=== PATIENT | male | born 1960 | race Caucasian/White ===

== ENCOUNTER → 2016-08-31 | Outpatient (CLI) | payer BC ==
--- NOTE | 2016-08-31 22:25 | CONS ---
DATE OF CONSULTATION: DATE: 08/31/2016 CONSULTATION/NEW PATIENT EVALUATION HISTORY OF PRESENT ILLNESS/SLEEP-WAKE EVALUATION: 56-year-old gentleman who has been evaluated in the sleep center for possible obstructive sleep apnea/hypopnea syndrome. SLEEP SCHEDULE: Patient's usual sleep schedule on working days is from 10:00 p.m. to 6:30 a.m. on weekends from around 11:00 p.m. to 7:00 a.m. FALLING ASLEEP: No problem with falling asleep. He has a TV in bedroom. DURING SLEEP: Usually sleeps on the side position. According to his , he snores and has episodes of stopped breathing during this sleep. He wakes up from sleep up to 3 times with nocturia. Patient also has with symptoms of restless leg while he is going to sleep. DURING THE DAY/WAKE STATE: He usually does not take any naps during the day. [place] Sleepiness Scale is 7. Past medical history is positive for BPH, headaches, neck pain, kidney stones, pneumothorax. Patient had pneumothorax at 1975, past surgical surgery for kidney stone on the left side and insertion of tube for pneumothorax. Also some hearing problem right side. MEDICATIONS: 1. Cialis. 2. Gabapentin. 3. ( ). SOCIAL HISTORY: Negative for smoking. Alcohol consumption occasional. FAMILY HISTORY: Unavailable patient was adopted. REVIEW OF SYSTEMS: No fevers. No double vision. No recent chest pain. No shortness of breath. No abdominal pain. No bleeding episodes. No blood in urine. No seizure episodes. PHYSICAL EXAMINATION: gentleman without distress. VITAL SIGNS: BP 152/87, HR 108, RR 16. Height 5 feet 6-1/2 inches. Weight 194. BMI 30.8. Neck 15-1/2 inches in circumference. Temperature 98.3. Oxygen saturation at room air 96%. HEENT: PERRLA, EOMI evaluation of oropharynx showed tongue protrudes midline; moderately low position of soft palate extremely short distance between soft palate and posterior pharyngeal wall. Retrognathia about 8 mm. Restriction of nasal breathing on the right side. NECK: Supple. No JVD. Thyroid is not palpable. LUNGS: Clear to percussion and to auscultation. Good air exchange. No wheezing or rhonchi. HEART: S1, S2 regular. No murmurs, gallops or rubs. ABDOMEN: Slightly obese. Soft and nontender. Bowel sounds are present. No organomegaly appreciated. EXTREMITIES: No clubbing or cyanosis. GYPSUM ROOFER: Awake, alert, and oriented x3. Cranial nerves 2 to 7 intact. There is no fasciculation or atrophy noted. No focal deficits observed. IMPRESSION: 1. Snoring, witnessed episodes of stopped breathing during sleep, retrognathia, restriction of nasal breathing, obstructive sleep apnea-hypopnea syndrome. 2. Mild obesity; body mass index of 30.8. 3. History of benign prostatic hypertrophy. 4. History of restless leg symptoms. 5. Headaches. 6. Neck pain. 7. Status post surgical treatment of left kidney for the kidney stones. 8. History of right side pneumothorax in 1974, and at that time, tube was inserted. PLAN: 1. Polysomnography for evaluation of patient's breathing during sleep. 2. CPAP/BiPAP titration if sleep study confirms obstructive sleep apnea-hypopnea syndrome there is tenderness about CPAP. I would not recommend to use auto Pap because of history of pneumothorax 3. Preferable position during sleep on the side. 4. No driving if patient feels any sleepiness. Patient is aware of civil and criminal liability for unsafe driving. 5. I will see patient for follow-up visit to explain results of the testing and following plan. Sincerely, Jose Guadalupe Joel MD, PhD, FAASM. Diplomat of [place] [employer], Sleep Medicine Board by [place] [employer] [place] [employer] Body Sander of [facility] [place]
== END | disposition home or self-care (01) ==
LOC: SLEEP 13:42
PROVIDERS: ATTEND Internal Medicine
DX: G47.33 Obstructive sleep apnea (adult) (pediatric) (principal); Z79.899 Other long term (current) drug therapy; E66.9 Obesity, unspecified; Z68.30 Body mass index [BMI] 30.0-30.9, adult

== ENCOUNTER → 2016-11-16 | Outpatient (CLI) | payer BC ==
--- NOTE | 2016-11-17 09:39 | PN ---
DATE OF SERVICE: 11/16/16 56 -year-old gentleman has been followed in the sleep center for discussion results of sleep studies. I discussed results of sleep studies with the patient and family in detail. Diagnostic sleep study which was done as a home sleep apnea test showed extremely severe obstructive sleep apnea/hypopnea syndrome with apnea/hypopnea index 51.5. Oxygen desaturation to 75%. Subsequently CPAP titration was done and the patients respiration was under control with pressure 6 cm water. At that pressure, apnea/hypopnea index reduced to 2.6. Today, [place] sleep scale is 6. PHYSICAL EXAM: GENERAL: A pleasant patient without any distress. VITAL SIGNS: BP 138/81, HR 90, RR 16, height 5 feet 6 inches, weight 194, body mass index 31.3. Temp 98.1, oxygen saturation on room air 94%. HEENT: PERRLA, EOMI. Evaluation of oropharynx shows moderately low position of soft palate. Tongue protrudes midline. Retrognathia about 6 mm. NECK: Supple. No JVD. Thyroid is not palpable. LUNGS: Clear to auscultation and percussion. Good air exchange. No wheezing or rhonchi. HEART: S1, S2 regular. No murmurs, gallops or rubs. ABDOMEN: Soft, nontender. Bowel sounds are present. No organomegaly appreciated. EXTREMITIES: No clubbing or cyanosis. MEDICAL OFFICE COORDINATOR: Awake, alert and oriented times three. Cranial nerves 2 to 7 intact. There is no fasciculation or atrophy noted. No focal deficits observed. IMPRESSION: 1. Severe obstructive sleep apnea/hypopnea syndrome. 2. History of BPH. 3. History of ( ). 4. History of headaches. 5. History of neck pain. 6. Status post surgical treatment of left kidney for kidney stone. 7. Status post right sided pneumothorax in 1974. PLAN: 1. The patient will be started on CPAP with pressure 6 cm water. 2. Sleep hygiene with regular time in bed for at least 7 hours. 3. The patient should use equipment every night for the whole night. 4. No driving if patient feels any sleepiness. 5. Follow-up visit after 30 nights of using CPAP equipment, evaluating response to treatment, compliance, and making necessary adjustments related to mask fitting, pressure and humidification. Thank you very much for allowing me to participate in the management of your patient. Sincerely, Jose Guadalupe Joel MD, PhD, FAASM Diplomat of [place] [employer]. Sleep Medicine Board by [place] [employer] [place] [employer] Medicine Head Of Data of [facility]
== END | disposition home or self-care (01) ==
LOC: SLEEP 16:33
PROVIDERS: ATTEND Internal Medicine
DX: G47.33 Obstructive sleep apnea (adult) (pediatric) (principal); Z98.890 Other specified postprocedural states

== ENCOUNTER → 2018-03-07 | Outpatient (CLI) | payer BC ==
--- NOTE | 2018-03-07 18:08 | PN ---
PROGRESS NOTE DATE OF SERVICE: 03/07/2018 57-year-old gentleman has been followed in Sleep Center for treatment of severe obstructive sleep apnea-hypopnea syndrome. The patient continued to use his CPAP equipment every night without significant problems related to mask fitting, pressure and humidification. I checked his CPAP unit. CPAP pressure is 6 cm of water. Usage for the last month 24/30 nights. Average usage 4.8 hours. Leak 14 L/minute, which is acceptable. Apnea- hypopnea index 4.7, which is in normal range. [place] Sleepiness Scale is 5. MEDICATIONS: Cialis, gabapentin, multivitamins. PHYSICAL EXAM: Patient in no distress BP 128/73, HR 78, RR 16, height 5 feet 6-1/2 inches, weight 192, body mass index 30.5, temperature 97.4, oxygen saturation at room air 98%. Oropharynx, moderately low position of soft palate. Retrognathia 5-6 mm. Neck Supple, no JVD. Thyroid is not palpable. LUNGS Clear to percussion and to auscultation. Good air exchange. No wheezing or rhonchi. HEART S1, S2 regular. No murmurs, gallops, or rubs. ABDOMEN Soft and nontender. Bowel sounds are present. No organomegaly appreciated. EXTREMITIES No clubbing or cyanosis. LUMBER SALVAGER Awake, alert, and oriented X3. Cranial nerves 2 to 7 intact. There is no fasciculation or atrophy. noted. No focal deficits observed. IMPRESSION: 1. Severe obstructive sleep apnea-hypopnea syndrome apnea-hypopnea index 61 on control with CPAP at 6 cm of water. Patient demonstrated good compliance with treatment benefitting from treatment. 2. History of benign prostatic hypertrophy. 3. History of neck pain. 4. History of headaches. 5. Status post surgical treatment of left kidney for kidney stone. 6. Status post right-sided pneumothorax. PLAN: 1. Patient will continue to use CPAP equipment every night for the whole night. 2. Sleep hygiene with regular time in bed for at least 8 hours. 3. No driving if feeling sleepiness. 4. Prescription for all necessary CPAP supplies including mask, tube, filters. 5. Followup visit in 1 year or earlier if patient has any problems. Thank you very much for allowing me to participate in management of your patient. Sincerely, Jose Guadalupe Joel MD, PhD, FAASM Diplomat of [place] [employer] [employer] of [employer] Medicine Technical Stenographer of [facility] [place] MMBHAVANA / RUSSELL: [id number] /
== END ==
LOC: SLEEP 15:37
PROVIDERS: ATTEND Internal Medicine
DX: G47.33 Obstructive sleep apnea (adult) (pediatric) (principal); N40.0 Benign prostatic hyperplasia without lower urinary tract symptoms; J95.811 Postprocedural pneumothorax; Z99.89 Dependence on other enabling machines and devices; Z98.890 Other specified postprocedural states; Z79.899 Other long term (current) drug therapy

== ENCOUNTER → 2019-03-20 | Outpatient (CLI) | payer BC ==
--- NOTE | 2019-03-20 16:58 | PN ---
PROGRESS NOTE DATE OF SERVICE: 03/20/2019 This patient is a 58-year-old gentleman who has been followed in the sleep center for treatment of obstructive sleep apnea-hypopnea syndrome. The patient continues to use his CPAP equipment most of the nights without significant problems related to mask fitting, pressure or humidification. [place] Sleepiness Scale today is 5. I checked his CPAP unit. CPAP pressure is 6 cm of water. Usage is 26/30 nights for the last month, and 20/30 nights for more than 4 hours. Average usage is 4.5 hours per night. Leak is 16 L/minute, which is borderline. Apnea-hypopnea index is 4.3, which is acceptable. MEDICATIONS: 1. Cialis. 2. Gabapentin. 3. Flomax. 4. Tamsulosin. PHYSICAL EXAMINATION: GENERAL: A pleasant patient in no distress. VITAL SIGNS: BP 149/94, HR about 95, RR 16, height 5 feet 8 inches, weight 192.6, which is 2 pounds less than one year ago, body mass index 29.1, temperature 97.7, oxygen saturation at room air 98%. HEENT: PERRLA, EOMI. Evaluation of oropharynx showed tongue protrudes midline. Retrognathia 5 mm. Low position of soft palate. Mallampati III. NECK: Supple. No JVD. Thyroid is not palpable. LUNGS: Clear to percussion and to auscultation. Good air exchange. No wheezing or rhonchi. HEART: S1, S2 regular. No murmurs, gallops or rubs. ABDOMEN: Soft and nontender. Bowel sounds are present. No organomegaly. EXTREMITIES: No clubbing or cyanosis. STRATEGIC PROCUREMENT MANAGER: Awake, alert, and oriented X3. Cranial nerves 2 to 7 intact. There is no fasciculation or atrophy. noted. No focal deficits observed. IMPRESSION: 1. Severe obstructive sleep apnea-hypopnea syndrome; apnea-hypopnea index 61, under good control with CPAP at a pressure of 6 cm of water. Patient demonstrated good compliance with treatment, benefitting from treatment. 2. History of benign prostatic hypertrophy. 3. Headaches. 4. History of neck pain. 5. History of left kidney stone surgical treatment. 6. Status post right-sided pneumothorax in 1974. PLAN: 1. Patient will continue to use CPAP equipment every night for the whole night. 2. Watching weight. 3. Sleep hygiene with regular time in bed for 7-1/2 to 8 hours. 4. No driving if feeling any sleepiness. 5. I will maintain all necessary prescriptions for CPAP supplies, including mask, tube, filters. If necessary, replacement of water chamber. 6. Follow-up visit in one year, or earlier if patient has any problems. Thank you very much for allowing me to participate in the management of your patient. Sincerely, Jose Guadalupe Joel MD, PhD, FAASM Diplomat of [place] [employer] Specialties [place] Board of Internal Medicine Production Counter of [facility] [place] MMODL / IJN: [id number] /
== END | disposition home or self-care (01) ==
LOC: SLEEP 16:04
PROVIDERS: ATTEND Internal Medicine
DX: G47.33 Obstructive sleep apnea (adult) (pediatric) (principal); J95.811 Postprocedural pneumothorax; R51 Headache; Z87.438 Personal history of other diseases of male genital organs; Z87.39 Personal history of other diseases of the musculoskeletal system and connective tissue; Z98.890 Other specified postprocedural states; Z99.89 Dependence on other enabling machines and devices; Z79.899 Other long term (current) drug therapy

== ENCOUNTER → 2020-01-01 | Outpatient (CLI) | payer OTHER | END | disposition home or self-care (01) | LOC: LABPAT 07:18 | PROVIDERS: ATTEND Surgery | DX: U07.1 COVID-19 (principal) | CPT/HCPCS: U0003; C9803 ==

== ENCOUNTER 2020-01-09 07:08 | Day surgery (SDC) | payer OTHER ==
[2020-01-06 15:58] VITALS: BMI 25.8
[~2020-01-09 07:08] MED LIST: LACTATED RINGERS 1,000 ML IV SCH
[2020-01-09 07:44] VITALS: TEMP 97.3
[2020-01-09] MEDS ORDERED: LIDOCAINE 1% (10MG/ML) FOR IV START INTRADERMA ONE (07:46)
[2020-01-09] MEDS ORDERED: PROPOFOL 10 MG/ML 20 ML VIAL IV ONE (08:07)
--- NOTE | 2020-01-09 08:41 | P.PCN ---
Date of Procedure: 01/09/20 Preoperative Diagnosis: Screening Postoperative Diagnosis: Ascending colon polyp transverse colon polyp Internal hemorrhoids Procedure(s) Performed: Colonoscopy with hot snare polypectomy Surgeon: Zoran Galeas Pathology: other (Ascending colon polyp, transverse colon polyp) Condition: stable Disposition: same day Indications for Procedure: 59-year-old male presents today for a screening colonoscopy. Risks, benefits and alternatives were provided to the patient. The patient has provided consent prior to attending the endoscopy suite. Operative Findings: Ascending colon polyp Transverse colon polyp Internal hemorrhoids Description of Procedure: The patient was brought into the endoscopy suite and placed in left lateral decubitus position. Adequate sedation was achieved using conscious sedation. A digital rectal exam was performed and mild internal hemorrhoids were palpated. An endoscope was then placed in the rectum and advanced to the cecum was evident 5 by landmarks including the appendiceal orifice and the ileocecal valve. The prep was good. The colonoscope was then slowly withdrawn, examining for any mucosal and the malleus. The cecum, ascending, transverse, descending and sigmoid colon were visualized adequately. There were no large neoplastic lesions noted throughout the colon. There was an ascending colon polyp. This was removed with hot snare polypectomy. An additional polyp was noted in the transverse colon and this was removed with hot snare polypectomy. There was no evidence of diverticulosis. Retroflex was performed in the rectum and mild internal hemorrhoids were visible. Excess air was removed, the colonoscope withdrawn and the procedure terminated. The patient was then transferred to the recovery unit in stable condition. Repeat colonoscopy should be performed in 5 years.
[2020-01-09 08:57] VITALS: BP 146/69; PULSE 63; RESP 20
== END 2020-01-09 09:58 | disposition home or self-care (01) ==
LOC: ORWHC2ENDO 07:08
PROVIDERS: ATTEND Surgery
DX: Z12.11 Encounter for screening for malignant neoplasm of colon (principal); D12.3 Benign neoplasm of transverse colon; K63.5 Polyp of colon; K64.8 Other hemorrhoids; G47.33 Obstructive sleep apnea (adult) (pediatric); Z87.442 Personal history of urinary calculi; Z79.899 Other long term (current) drug therapy
CPT/HCPCS: 45385; 88305; J2704; 45380

== ENCOUNTER → 2020-01-09 | Outpatient (CLI) | payer OTHER ==
--- NOTE | 2020-01-09 14:37 | XR ---
KUB HISTORY: Kidney stone Frontal KUB submitted. There is a calcification superimposed over the left kidney measuring 2.7 cm in greatest cephalad to c audal dimension. Multiple calcifications within the pelvis may represent vascular calcification. Ther e is no evident bowel obstruction or pneumoperitoneum. Slight spinal curvature is noted. IMPRESSION: Left nephrolithiasis.
== END | disposition home or self-care (01) ==
LOC: RADXRMAIN 13:09
PROVIDERS: ATTEND Urology
DX: N20.0 Calculus of kidney (principal)
CPT/HCPCS: 74018

== ENCOUNTER → 2020-03-18 | Outpatient (CLI) | payer BC ==
--- NOTE | 2020-03-18 17:57 | SFUN ---
SLEEP CENTER FOLLOW UP NOTE DATE OF SERVICE: 03/18/2020 This patient is a 59-year-old gentleman who has been followed in Sleep Center for treatment of obstructive sleep apnea-hypopnea syndrome. The patient continues to use his CPAP equipment every night for the whole night. He does not complain about the mask fitting, pressure or humidification. [place] Sleepiness Scale today is 6. I checked his CPAP unit. CPAP pressure is 6 cm of water. Usage is 27/30 nights, and 21/30 nights for more than 4 hours, with average usage 4.3 hours per night. Leak is 16 L/minute. Apnea-hypopnea index is 11 with central apnea-hypopnea index 5.0. MEDICATIONS: 1. Finasteride 5 mg once a day. 2. Montelukast 10 mg once a day. 3. Flomax 0.4 mg once a day. 4. Claritin once a day. 5. Saw palmetto 450 mg twice a day. 6. Cialis 5 mg once a day. PHYSICAL EXAMINATION: GENERAL: A pleasant patient in no distress. VITAL SIGNS: BP 151/81 on the left arm and 130/91 on the right arm, HR 85, RR 15, height 5 feet 7 inches, weight 190, BMI 29.7, temperature 97.7, oxygen saturation at room air 97%. HEENT: PERRLA, EOMI. Evaluation of oropharynx showed tongue protrudes midline. Low position of soft palate. Mallampati III. NECK: Supple. No JVD. Thyroid is not palpable. LUNGS: Clear to percussion and to auscultation. Good air exchange. No wheezing or rhonchi. HEART: S1, S2 regular. No murmurs, gallops or rubs. ABDOMEN: Soft and nontender. Bowel sounds are present. No organomegaly appreciated. EXTREMITIES: No clubbing or cyanosis. PULP HOUSE SUPERVISOR: Awake, alert, and oriented X3. Cranial nerves 2 to 7 intact. There is no fasciculation or atrophy. noted. No focal deficits observed. IMPRESSION: 1. Severe obstructive sleep apnea-hypopnea syndrome. Original apnea-hypopnea index 61. The patient demonstrated good compliance with treatment, but apnea-hypopnea index increased to 11, and that includes central apnea-hypopnea index 5.0. 2. History of benign prostatic hypertrophy. 3. Headaches. 4. History of neck pain. 5. History of left kidney stones, treated surgically. 6. Status post right-sided pneumothorax in 1974. PLAN: 1. I changed regimen in CPAP to AutoPAP. Range of the pressure is 4 to 8. 2. Patient will continue to use PAP equipment every night for the whole night. 3. Sleep hygiene with regular time in bed for at least 7-1/2 to 8 hours. 4. Precautions related to driving. No driving if feeling sleepiness. 5. I will maintain all necessary prescription for PAP supplies, including mask, tube, filters. 6. Watching weight. 7. Follow-up visit in 3 months or earlier if patient has any problems. Thank you very much for allowing me to participate in the management of your patient. Sincerely, Jose Guadalupe Joel MD, PhD, FAASM Diplomat of [place] [employer] Medical Specialties [place] Board of Internal Medicine Manager Merchandise of [facility] [place] MMODL / JOLIEN: [id number] /
== END | disposition home or self-care (01) ==
LOC: SLEEP 15:36
PROVIDERS: ATTEND Internal Medicine
DX: G47.33 Obstructive sleep apnea (adult) (pediatric) (principal); R51.9 Headache, unspecified; Z99.89 Dependence on other enabling machines and devices; Z79.899 Other long term (current) drug therapy; Z87.442 Personal history of urinary calculi; Z87.09 Personal history of other diseases of the respiratory system; Z87.438 Personal history of other diseases of male genital organs

== ENCOUNTER → 2020-06-17 | Outpatient (CLI) | payer OTHER ==
--- NOTE | 2020-06-17 17:25 | SFUN ---
SLEEP CENTER FOLLOW UP NOTE DATE OF SERVICE: 06/17/2020 This 59-year-old gentleman has been followed in Sleep Center for treatment of obstructive sleep apnea-hypopnea syndrome. During his previous visit in March of 2020, when I checked his CPAP unit, apnea-hypopnea index was increased to 11 with central apnea-hypopnea index 5.0. That was at the pressure of 6 cm of water. I changed the regimen of the machine to automatic with range of the pressure 4 to 8 cm of water. The patient continues to use his CPAP equipment every night for the whole night. He did not feel a significant difference recently with his sleep compared to the previous visit. [place] Sleepiness Scale today is 6. I checked his CPAP unit. Range of the pressure is 4 to 8, average pressure 7.4. Usage is 27/30 nights and 25/30 nights for more than 4 hours, with average usage 5.2 hours per night. Leak is 19 L/minute. Apnea-hypopnea index increased to 15.4, and that index includes apnea index 14.4 and central abnormalities of respiration 5.9. MEDICATIONS: 1. Finasteride 5 mg once a day. 2. Flomax 0.4 mg once a day. 3. Cialis 5 mg once a day. 4. Montelukast 10 mg once a day. 5. Claritin. 6. Saw palmetto. PHYSICAL EXAMINATION: GENERAL: A pleasant patient in no distress. VITAL SIGNS: BP 1134/67, HR 93, RR 15, height 5 feet 6-1/2 inches, weight 192 pounds, temperature 97.0, oxygen saturation at room air 98%. BMI 30.5. HEENT: PERRLA, EOMI. Evaluation of oropharynx showed tongue protrudes midline. Low position of soft palate. Mallampati III. NECK: Supple. No JVD. Thyroid is not palpable. LUNGS: Clear to percussion and to auscultation. Good air exchange. No wheezing or rhonchi. HEART: S1, S2 regular. No murmurs, gallops or rubs. ABDOMEN: Obese. EXTREMITIES: No clubbing or cyanosis. PHARMACEUTICAL PROCESS ENGINEER: Awake, alert, and oriented X3. Cranial nerves 2 to 7 intact. There is no fasciculation or atrophy. noted. No focal deficits observed. IMPRESSION: 1. Severe obstructive sleep apnea-hypopnea syndrome; original AHI 61. Patient demonstrated good compliance with treatment, benefitting from treatment, but apnea- hypopnea index increased to 15.4 with central events 5.9. 2. Status post right-sided pneumothorax in 1974. 3. History of benign prostatic hypertrophy. 4. History of headaches. 5. History of neck pain. 6. History of left kidney stones, treated surgically. PLAN: 1. CPAP, if necessary BiPAP ST mode titration for correction of patient's respiratory abnormalities during sleep. Titration should go very slowly because of history of pneumothorax in the past. 2. Watching weight. 3. Sleep hygiene with regular time in bed for 7-1/2 to 8 hours. 4. No driving if feeling sleepiness. Thank you very much for allowing me to participate in the management of your patient. Sincerely, Jose Guadalupe Joel MD, PhD, FAASM Diplomat of [place] [employer] Specialties [place] Board of Internal Medicine Nipple Threader of [facility] [place] MMODL / JOLIEN: [id number] /
== END | disposition home or self-care (01) ==
LOC: SLEEP 16:05
PROVIDERS: ATTEND Internal Medicine
DX: G47.33 Obstructive sleep apnea (adult) (pediatric) (principal); J95.811 Postprocedural pneumothorax; Z87.438 Personal history of other diseases of male genital organs; Z86.69 Personal history of other diseases of the nervous system and sense organs; Z87.442 Personal history of urinary calculi

== ENCOUNTER → 2020-09-01 | Outpatient (CLI) | payer OTHER ==
--- NOTE | 2020-09-01 22:06 | SFUN ---
SLEEP CENTER FOLLOW UP NOTE DATE OF SERVICE: 09/01/2020. 60-year-old gentleman has been followed in Sleep Center for treatment of obstructive sleep apnea and central sleep apnea-hypopnea syndrome. During previous visit, reading from the machine showed high apnea-hypopnea index of 50.4 with central abnormalities of respiration, 5.9. We did test with BiPAP ST mode machine and respiration was normalized during titration. Then, the patient is supposed to receive a new BiPAP ST mode machine, but when he tried at home he did not like it, did not feel comfortable and presently continue to use his CPAP equipment and sleeps better with that. I checked his CPAP unit. It is automatic regimen, average pressure range of the pressure 4-8 with average pressure 7.3, usage /30 nights and 30 nights for more than 4 hours. Leak is 6 L/minute, which is acceptable. Apnea-hypopnea index 8.7, which included central index of 4. Subsequently, its improvement comparing with previous visit close to 2 times. The patient sleeps well with the CPAP according to him. [place] Sleepiness Scale today is 5, which is normal. MEDICATIONS: Finasteride 5 mg once a day. Montelukast 10 mg once a day. Flomax 0.4 mg once a day. Cialis 5 mg once a day. Montelukast 10 mg once a day. barbara Ziegler. PHYSICAL EXAMINATION: GENERAL: Patient in no distress. BP 142/85, HR 83, RR 15, height 5 feet 7 inches, weight 196.4, temperature 98.0, oxygen saturation at room air 95%. Oropharynx: Low position of soft palate, Mallampati 3. NECK: Supple, no JVD. Thyroid is not palpable. LUNGS: Clear to percussion and to auscultation. Good air exchange. No wheezing or rhonchi. HEART: S1, S2 regular. No murmurs, gallops, or rubs. ABDOMEN: Soft and nontender. Bowel sounds are present. No organomegaly appreciated. EXTREMITIES: No clubbing or cyanosis. DIGITAL SOLUTIONS ARCHITECT: Awake, alert, and oriented X3. Cranial nerves 2 to 7 intact. There is no fasciculation or atrophy. noted. No focal deficits observed. IMPRESSION: 1. Severe obstructive sleep apnea-hypopnea syndrome. Originally, apnea-hypopnea index 61 with severe oxygen desaturation to 75%. Respiration on CPAP improved. The patient sleeps well with the machine and demonstrated good compliance and subsequently benefitting from treatment. 2. History of benign prostatic hypertrophy. 3. History of restless legs syndrome. 4. Episodes of headaches. 5. Neck pain. 6. Status post surgical treatment of kidney stone on left side. 7. History of right-sided pneumothorax in 1974. PLAN: 1. Continue treatment with AutoPAP. Range of the pressure 4-8. 2. Sleep hygiene with regular time in bed for at least 7-1/2 to 8 hours. 3. Precautions related to driving. No driving if feeling sleepiness. 4. I will maintain all necessary prescription for PAP supplies including mask, tube, filters. 5. Watching weight. 6. Follow-up visit in 6 months or earlier if patient has any problems. Thank you very much for allowing me to participate in management of your patient. Sincerely, Jose Guadalupe Joel MD, PhD, FAASM Diplomat of [place] [employer]ties [place] Board of Internal Medicine Bank Note Designer of [facility] [place] MMODL / JOLIEN: [id number] /
== END ==
LOC: SLEEP 10:58
PROVIDERS: ATTEND Internal Medicine
DX: G47.33 Obstructive sleep apnea (adult) (pediatric) (principal); G25.81 Restless legs syndrome; R51.9 Headache, unspecified; M54.2 Cervicalgia; Z87.09 Personal history of other diseases of the respiratory system; Z87.442 Personal history of urinary calculi; Z87.438 Personal history of other diseases of male genital organs; Z98.890 Other specified postprocedural states; Z99.81 Dependence on supplemental oxygen

== ENCOUNTER 2021-08-14 00:39 | Observation (INO) | payer OTHER ==
[2021-08-14 02:52] LABS: Basophils % (A) 0 %; Eosinophils # (A) 0.2 k/uL (0-0.7); Eosinophils % (A) 2 %; HGB 15.5 gm/dL (13.0-17.5); Lymphocytes # (A) 1.4 k/uL (1.0-4.8); Lymphocytes % (A) 11 %; MCH 29.7 pg (25.0-35.0); MCHC 32.2 g/dL (31.0-37.0); MCV 92.2 fL (80.0-100.0); Mean Platelet Volume 8.8; Monocytes # (A) 0.6 k/uL (0-1.0); Monocytes % (A) 5 %; Neutrophils # (A) 10.4 k/uL (1.3-7.7); Neutrophils % (A) 81 %; Platelet Count 237 k/uL (150-450); RDW 13.8 % (11.5-15.5); WBC 12.8 k/uL (3.8-10.6)
[2021-08-14 03:03] LABS: Calcium 9.4 mg/dL (8.4-10.2); Potassium 3.8 mmol/L (3.5-5.1); Total Bilirubin 0.5 mg/dL (0.2-1.3); Total Protein 6.5 g/dL (6.3-8.2)
[2021-08-14 03:17] LABS: Appearance,Urine Cloudy (Clear); Bacteria,Urine Rare /hpf; Bilirubin,Urine Negative (Negative); Blood,Urine Moderate (Negative); Budding Yeast,Urine Occasional /hpf; Calcium Oxalate Crystals,Urine Few /hpf; Color,Urine Yellow; Glucose,Urine (UA) Negative (Negative); Hyaline Casts,Urine 5 /lpf (0-2); Ketones,Urine Negative (Negative); Leukocyte Esterase,Urine Moderate (Negative); Mucus,Urine Moderate /hpf; Nitrite,Urine Negative (Negative); PH, Urine 5.5 (5.0-8.0); Protein,Urine 1+ (Negative); RBC,Urine 36 /hpf (0-5); Specific Gravity,Urine 1.031 (1.001-1.035); Urobilinogen,Urine <2.0 mg/dL (<2.0); WBC,Urine 22 /hpf (0-5)
[2021-08-14] MEDS ORDERED: MORPHINE SULFATE 4 MG/ML SYRINGE IV STA (03:18)
[2021-08-14] MEDS ORDERED: KETOROLAC 15 MG/ML 1 ML VIAL IVP STA (03:19)
--- NOTE | 2021-08-14 04:29 | CT ---
EXAMINATION TYPE: CT abdomen pelvis wo con DATE OF EXAM: 08/14/2021 COMPARISON: None HISTORY: left flank pain CT DLP: 678.5 mGycm Automated exposure control for dose reduction was used. Images obtained from the diaphragm to the floor of the pelvis without contrast. Lung bases are clear. There is no pleural effusion. Heart size is normal. There are multiple cysts in the liver that measure up to 1.5 cm. Gallbladder appears normal. Spleen i s intact. There is no pancreatic mass. The bile ducts are not dilated. Stomach is intact. There is fat stranding around the left kidney. There is left-sided hydronephrosis. There is a 2.5 cm calculus at the left renal pelvis. The right kidney appears normal. No hydronephrosis. The ureters are not dilated. There is no retroper itoneal adenopathy. Prostate is enlarged with calcification. The prostate measures 5.5 cm. The lumbar vertebrae have normal alignment. There is no compression fracture. There is narrowing of L 4-5 and L5-S1 disc spaces with spurring. The bony pelvis is intact. Hip joints are intact. There is no mesenteric edema. No ascites or free air. No bowel obstruction. Appendix appears normal. IMPRESSION: Large calculus at the left renal pelvis with hydronephrosis and perinephric edema. Calculus obstructi ng the ureteropelvic junction. Normal appendix.
[2021-08-14] MEDS ORDERED: LEVOFLOXACIN 500 MG TAB PO STA (04:35)
[2021-08-14 05:08] VITALS: RESP 16
[2021-08-14] MEDS ORDERED: KETOROLAC 15 MG/ML 1 ML VIAL IVP PRN (06:27)
[2021-08-14] MEDS ORDERED: ACETAMINOPHEN TAB 325 MG TAB PO PRN (06:27)
[2021-08-14] MEDS ORDERED: ONDANSETRON 4 MG/2 ML VIAL IVP PRN (06:27)
[2021-08-14] MEDS ORDERED: NALOXONE 0.4 MG/ML 1 ML VIAL IV PRN (06:27)
[2021-08-14] MEDS ORDERED: MORPHINE SULFATE 4 MG/ML SYRINGE IV PRN (06:27)
[2021-08-14] MEDS ORDERED: SODIUM CHLORIDE 0.9% 1,000 ML IV SCH (06:30)
[2021-08-14 07:06] VITALS: TEMP 98.4
[2021-08-14] MEDS: ATORVASTATIN 20 MG TAB PO SCH ×2 (08:56→08:57)
[2021-08-14] MEDS ORDERED: ACETAZOLAMIDE 500 MG PO SCH (09:00)
[2021-08-14] MEDS ORDERED: FINASTERIDE 5 MG TAB PO SCH (09:00)
[2021-08-14] MEDS ORDERED: PANTOPRAZOLE 40 MG/10 ML VIAL IVP SCH (09:00)
[2021-08-14 09:05] VITALS: BP 126/71; PULSE 99
--- NOTE | 2021-08-14 09:58 | P.GSHP ---
History of Present Illness H&P Date: 08/14/21 Chief Complaint: left renal This is a 61-year-old male with history of recurrent kidney stones. Presented to the ER with left flank pain. Underwent a CT scan that showed evidence of a 2.5 cm left renal stone in the renal pelvis causing moderate hydronephrosis. Initially his pain was at the flank and radiating to the lower abdomen. Denies any fevers chills or gross hematuria with the pain. Denies any nausea or vomiting. He indicated his pain has resolved this morning. He is a patient of Dr. Carlson follows up with him for kidney stones and BPH. Of note he has history of a PCNL in the past for a large kidney stone. He indicated that was more than 10 years ago. Has not had any stones since that time. - Constitutional Constitutional: Denies chills, Denies fever - Cardiovascular Cardiovascular: Denies chest pain, Denies shortness of breath - Respiratory Respiratory: Denies cough, Denies 7 - Gastrointestinal Gastrointestinal: Reports abdominal pain - Genitourinary (Male) Genitourinary: Reports flank pain, Denies dysuria, Denies hematuria - Musculoskeletal Musculoskeletal: Denies myalgias - Neurological Neurological: Denies numbness, Denies weakness Past Medical History Past Medical History: Hyperlipidemia, Osteoarthritis (OA) Additional Past Medical History / Comment(s): kidney stones,skin cancer, detached retinas History of Any Multi-Drug Resistant Organisms: None Reported Additional Past Surgical History / Comment(s): kidney stone removal, sponteous pneumo, eye surgery. Past Psychological History: No Psychological Hx Reported Smoking Status: Never smoker Past Alcohol Use History: Occasional Past Drug Use History: None Reported Medications and Allergies Home Medications Medication Instructions Recorded Confirmed Type Finasteride [Proscar] 5 mg PO QAM 01/06/20 08/14/21 History Montelukast [Singulair] 10 mg PO HS 01/06/20 08/14/21 History Tamsulosin HCl [Flomax] 0.4 mg PO HS 01/06/20 08/14/21 History Rosuvastatin Calcium 10 mg PO DAILY 08/14/21 08/14/21 History Tadalafil [Cialis] 5 mg PO DAILY 08/14/21 08/14/21 History acetaZOLAMIDE [acetaZOLAMIDE ER] 500 mg PO BID 08/14/21 08/14/21 History Allergies Allergy/AdvReac Type Severity Reaction Status Date / Time No Known Allergies Allergy Verified 01/09/20 07:47 Surgical - Exam Vital Signs Temp Pulse Resp BP Pulse Ox 97.9 F 89 18 137/85 97 08/14/21 00:53 08/14/21 00:53 08/14/21 00:53 08/14/21 00:53 08/14/21 00:53 - General no distress, no pain - Eyes normal ocular movement, no pale - ENT normal nares, normal mucosa - Respiratory normal expansion, normal respiratory effort - Abdomen Abdomen: soft, non tender - Psychiatric oriented to time, oriented to person, oriented to place, speech is normal Results - Labs 08/14/21 02:44 08/14/21 02:44 Abnormal Lab Results - Last 24 Hours (Table) 08/14/21 08/14/21 08/14/21 Range/Units 02:44 02:44 02:44 WBC 12.8 H (3.8-10.6) k/uL Neutrophils # 10.4 H (1.3-7.7) k/uL Chloride 116 H (98-107) mmol/L Carbon Dioxide 17 L (22-30) mmol/L BUN 32 H (9-20) mg/dL Creatinine 1.47 H (0.66-1.25) mg/dL Glucose 124 H (74-99) mg/dL Urine Protein 1+ H (Negative) Urine Blood Moderate H (Negative) Ur Leukocyte Esterase Moderate H (Negative) Urine RBC 36 H (0-5) /hpf Urine WBC 22 H (0-5) /hpf Calcium Oxalate Crystal Few H (None) /hpf Urine Bacteria Rare H (None) /hpf Hyaline Casts 5 H (0-2) /lpf Urine Mucus Moderate H (None) /hpf Urine Yeast (Budding) Occasional H (None) /hpf Diabetes panel 08/14/21 Range/Units 02:44 Sodium 142 (137-145) mmol/L Potassium 3.8 (3.5-5.1) mmol/L Chloride 116 H (98-107) mmol/L Carbon Dioxide 17 L (22-30) mmol/L BUN 32 H (9-20) mg/dL Creatinine 1.47 H (0.66-1.25) mg/dL Glucose 124 H (74-99) mg/dL Calcium 9.4 (8.4-10.2) mg/dL AST 17 (17-59) U/L ALT 12 (4-49) U/L Alkaline Phosphatase 56 (38-126) U/L Total Protein 6.5 (6.3-8.2) g/dL Albumin 4.0 (3.5-5.0) g/dL Calcium panel 08/14/21 Range/Units 02:44 Calcium 9.4 (8.4-10.2) mg/dL Albumin 4.0 (3.5-5.0) g/dL Pituitary panel 08/14/21 Range/Units 02:44 Sodium 142 (137-145) mmol/L Potassium 3.8 (3.5-5.1) mmol/L Chloride 116 H (98-107) mmol/L Carbon Dioxide 17 L (22-30) mmol/L BUN 32 H (9-20) mg/dL Creatinine 1.47 H (0.66-1.25) mg/dL Glucose 124 H (74-99) mg/dL Calcium 9.4 (8.4-10.2) mg/dL Adrenal panel 08/14/21 Range/Units 02:44 Sodium 142 (137-145) mmol/L Potassium 3.8 (3.5-5.1) mmol/L Chloride 116 H (98-107) mmol/L Carbon Dioxide 17 L (22-30) mmol/L BUN 32 H (9-20) mg/dL Creatinine 1.47 H (0.66-1.25) mg/dL Glucose 124 H (74-99) mg/dL Calcium 9.4 (8.4-10.2) mg/dL Total Bilirubin 0.5 (0.2-1.3) mg/dL AST 17 (17-59) U/L ALT 12 (4-49) U/L Alkaline Phosphatase 56 (38-126) U/L Total Protein 6.5 (6.3-8.2) g/dL Albumin 4.0 (3.5-5.0) g/dL - Imaging CT scan - abdomen: image reviewed (2.5 cm stone in the left renal pelvis with moderate hydronephrosis) Assessment and Plan Assessment: This is 61-year-old male with history of recurrent kidney stones and a 2.5 cm left-sided renal stone causing moderate hydronephrosis, he was symptomatic on presentation but the symptoms resolved. Discussed with him given the size of the stone and the hydronephrosis and his symptoms he will eventually need surgical intervention for his stone. Discussed given the size of the stone the most appropriate treatment would be a PCNL. Discussed with him given the resolution of his pain at this time, I am going to discharge him home and he will follow-up with Dr. Carlson to arrange for a PCNL
--- NOTE | 2021-08-14 10:00 | P.DS ---
Providers Date of admission: 08/14/21 06:31 Attending physician: Andreas Melara MD Primary care physician: [place] [facility] Course: This is a 61-year-old male admitted to the hospital with a 2.5 cm left-sided renal stone, he was admitted for intractable pain. Additionally his UA was concerning for UTI. Patient pain resolved with IV pain medications, and he remained asymptomatic. He was discharged home, he will follow-up with Dr. Parish as an outpatient to arrange for a PCNL Plan - Discharge Summary New Discharge Prescriptions: No Action Tamsulosin HCl [Flomax] 0.4 mg PO HS Finasteride [Proscar] 5 mg PO QAM Montelukast [Singulair] 10 mg PO HS acetaZOLAMIDE [acetaZOLAMIDE ER] 500 mg PO BID Rosuvastatin Calcium 10 mg PO DAILY Tadalafil [Cialis] 5 mg PO DAILY Discharge Medication List Finasteride [Proscar] 5 mg PO QAM 01/06/20 [History] Montelukast [Singulair] 10 mg PO HS 01/06/20 [History] Tamsulosin HCl [Flomax] 0.4 mg PO HS 01/06/20 [History] Rosuvastatin Calcium 10 mg PO DAILY 08/14/21 [History] Tadalafil [Cialis] 5 mg PO DAILY 08/14/21 [History] acetaZOLAMIDE [acetaZOLAMIDE ER] 500 mg PO BID 08/14/21 [History] Follow up Appointment(s)/Referral(s): Tony Clark MD [Primary Care Provider] - 1 Week
--- NOTE | 2021-08-14 11:03 | P.CONS ---
History of Present Illness - Reason for Consult Consult date: 08/14/21 - History of Present Illness History of present illness This is a 61-year-old male with history of recurrent kidney stones. Presented to the ER with left flank pain. Patient states that it started approximately 7:00, patient stated that the pain started in his abdomen and radiated to the left flank area. He denied any hematuria nausea or vomiting. Patient underwent a computed tomography scan that showed evidence of a 2.5 cm left renal stone in the renal pelvis causing moderate hydronephrosis. After pain medication patient states that his pain did resolve. He has a patient of Dr. Vides and follows with him for kidney stones and BPH. Patient has a history of PCNL in the past for large kidney stone. That was more than 10 years ago. CBC 12.8, potassium 3.9, BUN 32, creatinine 1.47. Review Of Systems: Constitutional: No fever, no chills, no night sweats. No weight change. No weakness, fatigue or lethargy. No daytime sleepiness. EENT: No headache. No blurred vision or double vision, no loss of vision. No loss of Hearing, no ringing in the ears, no dizziness. No nasal drainage or congestion. No epistaxis. No sore throat. Lungs: No shortness of breath, cough, no sputum production. No wheezing. Cardiovascular: No chest pain, no lower extremity edema. No palpitations. No paroxysmal nocturnal dyspnea. No orthopnea. No lightheadedness or dizziness. No syncopal episodes. Abdominal: Left flank pain resolved no abdominal discomfort. No nausea, vo miting. no diarrhea. No constipation. No bloody or tarry stools. no loss of appetite. Genitourinary: No dysuria, increased frequency, urgency. No urinary retention. Musculoskeletal: No myalgias. No muscle weakness, no gait dysfunction, no frequent falls. No back pain. No neck pain. Integumentary: No wounds, no lesions. No rash or pruritus. No unusual bruising. No change in hair or nails. Neurologic: No aphasia. No facial droop. No change in mentation. No head injury. No headache. No paralysis. No paresthesia. Psychiatric: No depression. No anxiety. No mood swings. Endocrine: No abnormal blood sugars. No weight change. No excessive sweating or thirst. Social history: Lifelong nonsmoker, denies EtOH or illicit drug use. He is an entry level staff accountant Family history: Patient is adopted has no siblings, 2 children who are healthy, mom at 68 from CVA at 68 from lung cancer. Physical examination General Appearance: Alert, cooperative, no distress, examined at the bedside 71-year-old pleasant male appears stated age. Neck HEENT: Supple, no lymphadenopathy, no thyroid enlargement, no carotid bruits. Lungs: Clear to auscultation without crackles or wheezes no rhonchi, no def ormity. Chest Wall: Chest wall normal expansion with deep inspiration no tenderness and no deformity was found on exam, no costochondral pain or discomfort. Heart: Regular rate and rhythm, S1, S2 normal, no murmur, rub or gallop. Back: Symmetric, no curvature, ROM normal, no CVA tenderness. Abdomen: Soft, non-tender, no rebound or rigidity, no hepatosplenomegaly. Extremities: Extremities normal, atraumatic, no cyanosis or edema. Pulses: 2+ and symmetric. Skin: Skin color, texture, tugor normal, no rashes or lesions. Neurologic: Alert oriented x3 cranial nerves II through XII intact, no motor d eficit, no abnormal balance or gait Assessment and plan 1. Left flank pain with renal calculi. Awaiting urology, CT of the abdomen shows 2.5 cm stone in the left renal pelvis with moderate hydronephrosis. Morphine 4 mg as needed for pain Toradol 50 mg 2. Acute renal injury. BUN 32, creatinine 1.47 Hydration continue to monitor. Monitor BUN/creatinine 3. BPH. Flomax 0.4 mg by mouth at bedtime, finasteride 5 milligrams by mouth 4. Hyperlipidemia. Lipitor 20 mg by mouth daily 5. GI prophylaxis. Protonix 40 mg 6. DVT prophylaxis. Ambulation Thank you for the consult we will continue to follow along with you with the patient. Impression and plan of care have been directed as dictated by the signing physician. Jocelyn Paul nurse practitioner acting as scribe for signing physician. Past Medical History Past Medical History: Hyperlipidemia, Osteoarthritis (OA) Additional Past Medical History / Comment(s): kidney stones,skin cancer, detached retinas History of Any Multi-Drug Resistant Organisms: None Reported Additional Past Surgical History / Comment(s): kidney stone removal, sponteous pneumo, eye surgery. Past Psychological History: No Psychological Hx Reported Smoking Status: Never smoker Past Alcohol Use History: Occasional Past Drug Use History: None Reported Medications and Allergies Home Medications Medication Instructions Recorded Confirmed Type Finasteride [Proscar] 5 mg PO QAM 01/06/20 08/14/21 History Montelukast [Singulair] 10 mg PO HS 01/06/20 08/14/21 History Tamsulosin HCl [Flomax] 0.4 mg PO HS 01/06/20 08/14/21 History Cephalexin [Keflex] 500 mg PO Q8HR #21 cap 08/14/21 Rx Rosuvastatin Calcium 10 mg PO DAILY 08/14/21 08/14/21 History Tadalafil [Cialis] 5 mg PO DAILY 08/14/21 08/14/21 History acetaZOLAMIDE [acetaZOLAMIDE ER] 500 mg PO BID 08/14/21 08/14/21 History traMADol HCl [Ultram] 50 mg PO Q6HR PRN 3 Days #10 tab 08/14/21 Rx Allergies Allergy/AdvReac Type Severity Reaction Status Date / Time No Known Allergies Allergy Verified 01/09/20 07:47 Physical Exam Vitals: Vital Signs Temp Pulse Pulse Resp BP BP Pulse Ox 08/14/21 07:05 98.4 F 91 16 135/82 98 08/14/21 07:00 97.6 F 99 16 126/71 96 08/14/21 05:05 90 16 139/84 100 08/14/21 03:29 80 18 147/83 99 08/14/21 00:53 97.9 F 89 18 137/85 97 Intake and Output 08/13/21 08/14/21 08/14/21 22:59 06:59 14:59 Other: Weight 87.09 kg Results CBC & Chem 7: 08/14/21 02:44 08/14/21 02:44 Labs: Abnormal Lab Results - Last 24 Hours (Table) 08/14/21 08/14/21 08/14/21 Range/Units 02:44 02:44 02:44 WBC 12.8 H (3.8-10.6) k/uL Neutrophils # 10.4 H (1.3-7.7) k/uL Chloride 116 H (98-107) mmol/L Carbon Dioxide 17 L (22-30) mmol/L BUN 32 H (9-20) mg/dL Creatinine 1.47 H (0.66-1.25) mg/dL Glucose 124 H (74-99) mg/dL Urine Protein 1+ H (Negative) Urine Blood Moderate H (Negative) Ur Leukocyte Esterase Moderate H (Negative) Urine RBC 36 H (0-5) /hpf Urine WBC 22 H (0-5) /hpf Calcium Oxalate Crystal Few H (None) /hpf Urine Bacteria Rare H (None) /hpf Hyaline Casts 5 H (0-2) /lpf Urine Mucus Moderate H (None) /hpf Urine Yeast (Budding) Occasional H (None) /hpf Microbiology - Last 24 Hours (Table) 08/14/21 02:44 Urine Culture - Preliminary Urine,Voided
[2021-08-14] MEDS ORDERED: TAMSULOSIN 0.4 MG CAP.ER.24H PO SCH (21:00)
[2021-08-14] MEDS ORDERED: MONTELUKAST 10 MG TAB PO SCH (21:00)
--- NOTE | 2021-09-17 12:43 | ED ---
Abdominal Pain HPI - General Chief Complaint: Abdominal Pain Stated Complaint: Abd/Back Pain Time Seen by Provider: 08/14/21 03:03 Source: patient Mode of arrival: ambulatory Limitations: no limitations - History of Present Illness Initial Comments: This patient is 61-year-old man who presents to be evaluated for severe left flank pain. Patient states that it had come on over the course of tonight. He has had a few similar episodes in the past. He did have history of previous kidney stone. He states the symptoms are identical to that. In addition patient having nausea. No fever or chills. MD Complaint: flank pain -: hour(s) Location: L flank Radiation: LLQ Migration to: no migration Severity: severe Quality: sharp Consistency: colicky Improves With: nothing Worsens With: nothing Associated Symptoms: nausea - Related Data Home Medications Medication Instructions Recorded Confirmed Finasteride [Proscar] 5 mg PO DAILY 01/06/20 09/06/21 Montelukast [Singulair] 10 mg PO DAILY 01/06/20 09/06/21 Tamsulosin HCl [Flomax] 0.4 mg PO DAILY 01/06/20 09/09/21 Rosuvastatin Calcium 10 mg PO DAILY 08/14/21 09/06/21 acetaZOLAMIDE [acetaZOLAMIDE ER] 500 mg PO BID 08/14/21 09/06/21 tadalafiL [Cialis] 5 mg PO DAILY 08/14/21 09/09/21 Allergies Allergy/AdvReac Type Severity Reaction Status Date / Time No Known Allergies Allergy Verified 09/09/21 13:01 Review of Systems ROS Statement: Those systems with pertinent positive or pertinent negative responses have been documented in the HPI. ROS Other: All systems not noted in ROS Statement are negative. Constitutional: Denies: fever, chills Respiratory: Denies: cough, dyspnea Cardiovascular: Denies: chest pain Gastrointestinal: Reports: as per HPI, abdominal pain, nausea. Denies: vomiting, diarrhea, constipation Genitourinary: Denies: dysuria, frequency, hematuria, testicular pain Musculoskeletal: Denies: back pain Skin: Denies: rash Neurological: Denies: headache, weakness Past Medical History Past Medical History: Hyperlipidemia, Osteoarthritis (OA) Additional Past Medical History / Comment(s): kidney stones,skin cancer, detached retinas History of Any Multi-Drug Resistant Organisms: ESBL Date of last positivie culture/infection: 08/14/21 MDRO Source:: ESBL URINE Additional Past Surgical History / Comment(s): kidney stone removal, sponteous pneumo, eye surgery. Past Psychological History: No Psychological Hx Reported Smoking Status: Never smoker Past Alcohol Use History: Occasional Past Drug Use History: None Reported General Exam Limitations: no limitations General appearance: alert, in distress Head exam: Present: atraumatic, normocephalic Eye exam: Present: normal appearance Respiratory exam: Present: normal lung sounds bilaterally. Absent: respiratory distress, wheezes, rales, rhonchi, stridor Cardiovascular Exam: Present: regular rate, normal rhythm, normal heart sounds. Absent: systolic murmur, diastolic murmur, rubs, gallop GI/Abdominal exam: Present: soft. Absent: distended, tenderness, guarding, rebound, rigid, mass Extremities exam: Present: normal inspection, normal capillary refill. Absent: pedal edema, calf tenderness Back exam: Present: normal inspection, CVA tenderness (L). Absent: CVA tenderness (R), paraspinal tenderness, vertebral tenderness Neurological exam: Present: alert Skin exam: Present: warm, dry, intact, normal color. Absent: rash Course Vital Signs 08/14/21 08/14/21 08/14/21 00:53 03:29 05:05 Temperature 97.9 F Pulse Rate 89 80 90 Pulse Rate [ Right] Respiratory 18 18 16 Rate Blood Pressure 137/85 147/83 139/84 Blood Pressure [Right Arm] O2 Sat by Pulse 97 99 100 Oximetry 08/14/21 08/14/21 07:00 07:05 Temperature 97.6 F 98.4 F Pulse Rate 91 Pulse Rate [ 99 Right] Respiratory 16 16 Rate Blood Pressure 135/82 Blood Pressure 126/71 [Right Arm] O2 Sat by Pulse 96 98 Oximetry Medical Decision Making - Medical Decision Making Patient is 61-year-old man with left flank pain, found to have large left sided UPJ stone. We were unable to obtain significant relief for the patient in the emergency department. Case discussed with urology on-call who will see the patient, given his multiple comorbidities did request consult to medicine service. - Lab Data Result diagrams: 08/14/21 02:44 08/14/21 02:44 Lab Results 08/14/21 08/14/21 08/14/21 Range/Units 02:44 02:44 02:44 WBC 12.8 H (3.8-10.6) k/uL RBC 5.20 (4.30-5.90) m/uL Hgb 15.5 (13.0-17.5) gm/dL Hct 48.0 (39.0-53.0) % MCV 92.2 (80.0-100.0) fL MCH 29.7 (25.0-35.0) pg MCHC 32.2 (31.0-37.0) g/dL RDW 13.8 (11.5-15.5) % Plt Count 237 (150-450) k/uL MPV 8.8 Neutrophils % 81 % Lymphocytes % 11 % Monocytes % 5 % Eosinophils % 2 % Basophils % 0 % Neutrophils # 10.4 H (1.3-7.7) k/uL Lymphocytes # 1.4 (1.0-4.8) k/uL Monocytes # 0.6 (0-1.0) k/uL Eosinophils # 0.2 (0-0.7) k/uL Basophils # 0.0 (0-0.2) k/uL Sodium 142 (137-145) mmol/L Potassium 3.8 (3.5-5.1) mmol/L Chloride 116 H (98-107) mmol/L Carbon Dioxide 17 L (22-30) mmol/L Anion Gap 9 mmol/L BUN 32 H (9-20) mg/dL Creatinine 1.47 H (0.66-1.25) mg/dL Est GFR (CKD-EPI)AfAm 58 (>60 ml/min/1.73 sqM) Est GFR (CKD-EPI)NonAf 50 (>60 ml/min/1.73 sqM) Glucose 124 H (74-99) mg/dL Calcium 9.4 (8.4-10.2) mg/dL Total Bilirubin 0.5 (0.2-1.3) mg/dL AST 17 (17-59) U/L ALT 12 (4-49) U/L Alkaline Phosphatase 56 (38-126) U/L Total Protein 6.5 (6.3-8.2) g/dL Albumin 4.0 (3.5-5.0) g/dL Amylase 60 (30-110) U/L Lipase 66 (23-300) U/L Urine Color Yellow Urine Appearance Cloudy (Clear) Urine pH 5.5 (5.0-8.0) Ur Specific [place] 1.031 (1.001-1.035) Urine Protein 1+ H (Negative) Urine Glucose (UA) Negative (Negative) Urine Ketones Negative (Negative) Urine Blood Moderate H (Negative) Urine Nitrite Negative (Negative) Urine Bilirubin Negative (Negative) Urine Urobilinogen <2.0 (<2.0) mg/dL Ur Leukocyte Esterase Moderate H (Negative) Urine RBC 36 H (0-5) /hpf Urine WBC 22 H (0-5) /hpf Calcium Oxalate Crystal Few H (None) /hpf Urine Bacteria Rare H (None) /hpf Hyaline Casts 5 H (0-2) /lpf Urine Mucus Moderate H (None) /hpf Urine Yeast (Budding) Occasional H (None) /hpf Disposition Clinical Impression: Intractable abdominal pain, Left ureteral calculus Disposition: ADMITTED IP TO THIS [facility] Condition: Fair Is patient prescribed a controlled substance at d/c from ED?: No
== END 2021-08-14 11:40 | disposition home or self-care (01) ==
LOC: EC 00:39 → 6NMEDSUR 06:31
PROVIDERS: ADMIT Urology; ATTEND Urology
DX: N13.2 Hydronephrosis with renal and ureteral calculous obstruction (principal); N17.9 Acute kidney failure, unspecified; N40.0 Benign prostatic hyperplasia without lower urinary tract symptoms; E78.5 Hyperlipidemia, unspecified; M19.90 Unspecified osteoarthritis, unspecified site; Z16.12 Extended spectrum beta lactamase (ESBL) resistance; Z85.828 Personal history of other malignant neoplasm of skin; Z87.442 Personal history of urinary calculi; Z98.890 Other specified postprocedural states; Z79.899 Other long term (current) drug therapy; Z82.3 Family history of stroke; Z80.1 Family history of malignant neoplasm of trachea, bronchus and lung
CPT/HCPCS: 96374; 96375; 99285; 36415; 80053; 82150; 83690; 85025; 81001; 87086; 87077; 87186; 74176; G0378; S0138; J2270; J1885

== ENCOUNTER → 2021-09-02 | Outpatient (CLI) | payer OTHER ==
[2021-09-02 18:27] LABS: Basophils # (A) 0.03 X 10*3/uL (0.00-0.10); Basophils % (A) 0.4 %; Eosinophils # (A) 0.26 X 10*3/uL (0.04-0.35); Eosinophils % (A) 3.5 %; HCT 46.2 % (39.6-50.0); HGB 14.6 g/dL (13.0-17.0); Immature Grans, Automated 0.1 %; Lymphocytes # (A) 2.15 X 10*3/uL (0.90-5.00); MCHC 31.6 g/dL (32.0-37.0); MCV 91.7 fL (80.0-97.0); Mean Platelet Volume 11.8 fL (9.5-12.2); Monocytes % (A) 8.1 %; NRBC Per 100 WBC 0 /100 WBCS (0.0-0.0); Neutrophils # (A) 4.37 X 10*3/uL (1.80-7.70); Neutrophils % (A) 58.9 %; Platelet Count 268 X 10*3/uL (140-440); RBC 5.04 X 10*6/uL (4.40-5.60); RDW 14.3 % (11.5-14.5); WBC 7.42 X 10*3/uL (4.50-10.00)
[2021-09-02 18:35] LABS: African American GFR (CKD) 82.4 (60.0-200.0); Albumin/Globulin Ratio 1.6 (1.60-3.17); Anion Gap 10.1 mmol/L (10.00-18.00); BUN/Creat Ratio 21.91 Ratio (12.00-20.00); Blood Urea Nitrogen 24.1 mg/dL (9.0-27.0); Calcium 9.3 mg/dL (8.7-10.3); Carbon Dioxide 18.9 mmol/L (20.0-27.5); Globulin 2.5 g/dL (1.6-3.3); Non-African American GFR(CKD) 71.1 (60.0-200.0); Potassium 3.7 mmol/L (3.5-5.5); Total Bilirubin 0.5 mg/dL (0.30-1.20); Total Protein 6.5 g/dL (6.2-8.2)
[2021-09-02 19:47] LABS: Appearance,Urine Cloudy (Clear); Bilirubin,Urine Negative (Negative); Blood,Urine Large (Negative); Color,Urine Yellow (Yellow); Ketones,Urine Negative (Negative); Nitrite,Urine Negative (Negative); PH, Urine 5.5 (5.0-8.0); Specific Gravity,Urine 1.025 (1.001-1.030); Urobilinogen,Urine 0.2 (0.2,1.0)
[2021-09-02 19:55] LABS: Bacteria,Urine None Seen /HPF (None Seen)
== END | disposition home or self-care (01) ==
LOC: LABPAT 10:32
PROVIDERS: ATTEND Urology
DX: Z01.812 Encounter for preprocedural laboratory examination (principal); N20.0 Calculus of kidney; R31.21 Asymptomatic microscopic hematuria
CPT/HCPCS: 80053; 81001; 85025; 87086

== ENCOUNTER 2021-09-09 12:03 | Observation (INO) | payer OTHER ==
[2021-09-06 16:13] VITALS: BMI 28.8
--- NOTE | 2021-09-08 12:16 | P.GSHP ---
History of Present Illness H&P Date: 09/08/21 61 yo male with a large 2.5 cm left renal pelvic stone with pain and hydro who comes for a left pcnl. The risks complications and alternatives have been discussed, - Constitutional Constitutional: Denies chills, Denies fever - EENT Eyes: denies blurred vision, denies pain Ears, nose, mouth and throat: Denies headache, Denies sore throat - Cardiovascular Cardiovascular: Denies chest pain, Denies shortness of breath - Respiratory Respiratory: Denies cough, Denies 7 - Gastrointestinal Gastrointestinal: Denies abdominal pain, Denies diarrhea, Denies nausea, Denies vomiting - Genitourinary (Female) Genitourinary: Denies dysuria, Denies hematuria - Genitourinary (Male) Genitourinary: Denies dysuria, Denies hematuria - Musculoskeletal Musculoskeletal: Denies myalgias - Integumentary Integumentary: Denies pruritus, Denies rash - Neurological Neurological: Denies numbness, Denies weakness - Psychiatric Psychiatric: Denies anxiety, Denies depression - Endocrine Endocrine: Denies fatigue, Denies weight change Past Medical History Past Medical History: Cancer, Eye Disorder, Hearing Disorder / Deafness, Hyperlipidemia, Osteoarthritis (OA), Prostate Disorder, Sleep Apnea/CPAP/BIPAP Additional Past Medical History / Comment(s): Current kidney stones. Hx skin cancer, detached retinas, enlarged prostate, CPAP use - not currently using due to recovering from detached retinas, right eye Glaucoma, bilateral hearing aid use. History of Any Multi-Drug Resistant Organisms: None Reported Additional Past Surgical History / Comment(s): Kidney stone removal, procedure for collapsed lung - many yrs ago, eye surgery X2. Past Anesthesia/Blood Transfusion Reactions: No Reported Reaction Additional Past Anesthesia/Blood Transfusion Reaction / Comment(s): Family hx unknown - pt adopted. Past Psychological History: No Psychological Hx Reported Smoking Status: Never smoker Past Alcohol Use History: Occasional Past Drug Use History: None Reported - Past Family History Father History Unknown: Yes Family Medical History: Unable to Obtain Additional Family Medical History / Comment(s): Patient adopted, family hx unknown. Mother History Unknown: Yes Family Medical History: Unable to Obtain Additional Family Medical History / Comment(s): Pt adopted, family hx unknown. Medications and Allergies Home Medications Medication Instructions Recorded Confirmed Type Finasteride [Proscar] 5 mg PO DAILY 01/06/20 09/06/21 History Montelukast [Singulair] 10 mg PO DAILY 01/06/20 09/06/21 History Tamsulosin HCl [Flomax] 0.4 mg PO DAILY 01/06/20 09/06/21 History Rosuvastatin Calcium 10 mg PO DAILY 08/14/21 09/06/21 History Tadalafil [Cialis] 5 mg PO DAILY 08/14/21 09/06/21 History acetaZOLAMIDE [acetaZOLAMIDE ER] 500 mg PO BID 08/14/21 09/06/21 History Allergies Allergy/AdvReac Type Severity Reaction Status Date / Time No Known Allergies Allergy Verified 09/06/21 15:54 Surgical - Exam - General well developed, well nourished, no distress - Eyes normal ocular movement, no icteric - ENT no hearing loss, no congestion - Neck no masses, trachea midline - Respiratory normal respiratory effort, clear to auscultation - Abdomen Abdomen: soft, non tender, no guarding, no rigid, no rebound - Integumentary no rash, no abnormal pigmentation - Neurologic no disoriented, no combative - Psychiatric oriented to time, oriented to person, oriented to place, speech is normal, memory intact Results - Imaging CT scan - abdomen: report reviewed, image reviewed CT scan - pelvis: report reviewed, image reviewed Assessment and Plan Assessment: Impression: left renal pelvis stone large[>2.5cm] Plan: pcnl left
[~2021-09-09 12:03] MED LIST changes: +DEXAMETHASONE SOD PHOSPHATE 4 MG/ML 1 ML VIAL IV ONE; +HYDROmorphone 0.5 MG/0.5 ML SYRINGE IVP PRN; -LACTATED RINGERS 1,000 ML IV SCH; +LIDOCAINE 1% (10MG/ML) FOR IV START INTRADERMA PRN; +MIDAZOLAM 2 MG/2 ML VIAL IV PRN; +ONDANSETRON 4 MG/2 ML VIAL IVP ONE
--- NOTE | 2021-09-09 12:33 | XR ---
EXAMINATION TYPE: XR KUB DATE OF EXAM: 09/09/2021 COMPARISON: 01/09/2020 HISTORY: Left-sided pain TECHNIQUE: One view abdominal series FINDINGS: The osseous structures are intact. The bowel gas pattern is nonspecific. 2.7 cm left renal stone. Cu rvature of the spine. Calcifications in the pelvis likely vascular. IMPRESSION: 1. Nonspecific abdomen. Stable 2.7 cm left renal stone.
[2021-09-09] MEDS: LACTATED RINGERS 1,000 ML IV SCH (13:18)
[2021-09-09] MEDS ORDERED: SUCCINYLCHOLINE CHLORIDE 100 MG/5 ML SYR IV ONE (14:14)
[2021-09-09] MEDS ORDERED: LIDOCAINE 2% INJ 20 MG/ML (2 ML VIAL) ONE (14:14)
[2021-09-09] MEDS ORDERED: fentaNYL (PF) 50 MCG/ML 2 ML AMP ONE (14:14)
[2021-09-09] MEDS ORDERED: MIDAZOLAM 2 MG/2 ML VIAL ONE (14:14)
[2021-09-09] MEDS ORDERED: HYDROmorphone (PF) 1 MG/ML ONE (14:14)
[2021-09-09] MEDS ORDERED: PROPOFOL 10 MG/ML 20 ML VIAL IV ONE (14:14)
[2021-09-09] MEDS ORDERED: IOPAMIDOL-370 50ML BTL IRRIGATION ONE (14:36)
[2021-09-09] MEDS ORDERED: LACTATED RINGERS 1,000 ML IV ONE (15:56)
[2021-09-09] MEDS ORDERED: MAG HYDROX/AL HYDROX/SIMETH 30 ML CUP PO PRN (16:25)
[2021-09-09] MEDS ORDERED: ONDANSETRON 4 MG/2 ML VIAL IVP PRN (16:25)
[2021-09-09] MEDS ORDERED: ACETAMINOPHEN TAB 325 MG TAB PO PRN (16:25)
[2021-09-09] MEDS ORDERED: HYDROmorphone PCA 10 MG/50 ML BAG IV PRN (16:26)
[2021-09-09] MEDS ORDERED: NALOXONE 0.4 MG/ML 1 ML VIAL IV PRN (16:26)
--- NOTE | 2021-09-09 16:32 | P.OP ---
Date of Procedure: 09/09/21 Preoperative Diagnosis: Left ureteral calculus, large, painful (greater than 3 cm) Postoperative Diagnosis: Same Procedure(s) Performed: Cystoscopy, placement of occluding balloon catheter left, percutaneous nephrostomy (Dr. Mcdonald) percutaneous nephrostolithotomy left with ultrasound, placement of 10 J nephrostomy Anesthesia: DEVONTE Surgeon: Db Carlson Estimated Blood Loss (ml): 100 Pathology: other (Stone) Condition: stable Disposition: PACU Indications for Procedure: The patient is 61. He has a history of stones. He had a 3 cm left lower pole stone that migrated in the renal pelvis causing pain. He comes for percutaneous nephrostolithotomy to remove the stone Description of Procedure: Patient is brought to the operating suite. He is given a general anesthesia on the transport gurney is placed in a frog position with sterile prep and drape. Cystoscopy Foroblique lens and 21-Bolivian sheath identifies a normal urethra. He does have enlarged prostate. The bladder isaac identified. The left ureteral orifice is intubated with a 5-Bolivian occluding balloon catheter passed up the renal pelvis. It is secured to a 16-Bolivian Kemp Patient is placed in a prone position with care to airways extremities and eyes. The patient has had previous retinal detachment. A sterile prep and drape is administered. Dr. Mcdonald of radiology performed percutaneous access to the left lower pole calyx. I then dilate the tract to 30-Bolivian and placed in a working sheath. Introduced the rigid scope into the collecting system and identify very large old hard braydon stone. With ultrasound I tediously break up this stone. It is extremely hard and takes an extended period of time to break up and remove. I finally unable to rid the patient of all the stone. Throughout the system there is no remaining stone. A 10-Bolivian J nephrostomy tube was placed in the collecting system. The patient awake and returned recovery in good condition. Blood loss is approximately milliliters. He tolerated the procedure will be placed in the hospital postoperatively.
[2021-09-09] MEDS: DEXTROSE 5%-0.45% NACL 1,000 ML IV SCH (19:57)
[2021-09-09] MEDS: acetaZOLAMIDE 250 MG TAB PO SCH (21:11)
[2021-09-10] MEDS: DEXTROSE 5%-0.45% NACL 1,000 ML IV SCH (06:05)
[2021-09-10] MEDS: acetaZOLAMIDE 250 MG TAB PO SCH (08:36)
[2021-09-10] MEDS ORDERED: MONTELUKAST 10 MG TAB PO SCH (09:00)
[2021-09-10] MEDS ORDERED: TAMSULOSIN 0.4 MG CAP.ER.24H PO SCH (09:00)
[2021-09-10] MEDS ORDERED: FINASTERIDE 5 MG TAB PO SCH (09:00)
[2021-09-10] MEDS: LACTATED RINGERS 1,000 ML IV SCH (10:49)
--- NOTE | 2021-09-10 13:06 | P.DS ---
Providers Date of admission: 09/10/21 04:02 Attending physician: Db Carlson Primary care physician: [facility] Course: The patient was admitted to the hospital 09/09/2021 for left percutaneous nephrostolithotomy. He underwent this. He was kept in the hospital overnight. Clearing. The Kemp catheter will be removed this morning. His diet will be advanced to regular. He'll ambulate. If his pains under control he may be discharged home later today. He has pain medicine at home. His diet is regular his activities Limited. He'll follow-up in the office next week for catheter removal. Postoperative instructions been given. Patient Condition at Discharge: Good Plan - Discharge Summary Discharge Rx Participant: No New Discharge Prescriptions: No Action Tamsulosin HCl [Flomax] 0.4 mg PO DAILY Finasteride [Proscar] 5 mg PO DAILY Montelukast [Singulair] 10 mg PO DAILY acetaZOLAMIDE [acetaZOLAMIDE ER] 500 mg PO BID Rosuvastatin Calcium 10 mg PO DAILY Tadalafil [Cialis] 5 mg PO DAILY Discharge Medication List Finasteride [Proscar] 5 mg PO DAILY 01/06/20 [History] Montelukast [Singulair] 10 mg PO DAILY 01/06/20 [History] Tamsulosin HCl [Flomax] 0.4 mg PO DAILY 01/06/20 [History] Rosuvastatin Calcium 10 mg PO DAILY 08/14/21 [History] Tadalafil [Cialis] 5 mg PO DAILY 08/14/21 [History] acetaZOLAMIDE [acetaZOLAMIDE ER] 500 mg PO BID 08/14/21 [History] Follow up Appointment(s)/Referral(s): Db Carlson MD [STAFF PHYSICIAN] - 09/14/21 Discharge Disposition: HOME SELF-CARE
[2021-09-10 15:18] VITALS: BP 103/62; PULSE 81; RESP 18; TEMP 97.6
--- NOTE | 2021-09-14 06:37 | FL ---
EXAMINATION TYPE: FL Perc Nephrostomy New Access DATE OF EXAM: 09/09/2021 COMPARISON: Same day x-ray HISTORY: Left-sided kidney stone. TECHNIQUE: Fluoroscopy. FINDINGS: Fluoroscopic guidance was provided during left-sided kidney stone treatment procedure perf ormed by Dr. Carlson. A total of 3 minutes 10 seconds of fluoroscopic time was utilized during the pro cedure and 4 spot images are acquired. Please refer to procedure note for further details. IMPRESSION: As Above.
== END 2021-09-10 17:35 | disposition home or self-care (01) ==
LOC: OR 12:03 → 6NMEDSUR 17:17 → OR 09-10 04:02 → 6NMEDSUR 09-10 04:02
PROVIDERS: ADMIT Urology; ATTEND Urology
DX: N20.1 Calculus of ureter (principal); E78.5 Hyperlipidemia, unspecified; N40.0 Benign prostatic hyperplasia without lower urinary tract symptoms; H91.90 Unspecified hearing loss, unspecified ear; M19.90 Unspecified osteoarthritis, unspecified site; G47.30 Sleep apnea, unspecified; Z85.828 Personal history of other malignant neoplasm of skin; H40.9 Unspecified glaucoma; G47.33 Obstructive sleep apnea (adult) (pediatric); Z79.899 Other long term (current) drug therapy
CPT/HCPCS: 86900; 86901; 86850; 82365; 50432; 74018; 50081; G0378; C1769 ×3; C1729 ×2; C1894; S0138; J2250; J1100; J0690; J2405; J3010; J1170 ×2; J0330; J2704; Q9967; J2001

== ENCOUNTER → 2022-09-28 | Outpatient (CLI) | payer BC ==
--- NOTE | 2022-09-28 15:39 | P.PN ---
Subjective DATE: 09/28/2022 FOLLOW UP VISIT. Patient with obstructive sleep apnea hypopnea syndrome return to sleep center for follow-up visit. Information from previous visit have been reviewed. Patient is using PAP equipment every night for the whole night, getting PAP supplies in time. The patient does not have significant problems with the mask, PAP unit and humidification. [place] sleepiness scale is 5, which is normal. I checked information from PAP unit. PAP unit pressure 4-8, average 6.9 cm H2O. Usage is 73 % for more then 4 hours, average 4.5 hours per night. Leak is 19.4 l/m, which is in acceptable range. Apnea Hypopnea Index is increased to 11.2, which include central sleep apnea 6.3, obstructive 3.3. MEDICATIONS:1. Cain 0.4 mg once a day 2., Rosuvastatin 10 mg once a day 3. Finasteride 5 mg once a day 4. Cialis 5 mg During physical exam: GENERAL: A pleasant patient without any distress. VITAL SIGNS: BP 150/93, HR 117, RR 16, weight 200.6, temperature 97.5, oxygen saturation at room air 98 % . HEENT: PERRLA, EOMI.low position of soft palate, Mallapati 3 . NECK: Supple. No JVD. LUNGS: Clear to percussion and to auscultation. Good air exchange. No wheezing or rhonchi. HEART: S1, S2 regular. ABDOMEN: Soft and nontender.[] EXTREMITIES: No clubbing or cyanosis. VOICE AND DATA TECHNICIAN: Awake, alert, and oriented x3. No focal deficit. Impressions: 1. Obstructive sleep apnea-hypopnea syndrome. Patient demonstrated borderline compliance with treatment, benefiting from treatment. Apnea-hypopnea index slightly increased mostly secondary to central apneas. Previously we tried patient on BiPAP ST mode machine for treatment of central apneas, but he did not like it. 2. Status post recent cataract surgery. 3. Status post recent bilateral retina detachment, status post surgical treatment. 4. BPH. 5. History of restless leg symptoms. 6. Status post recent surgical treatment for kidney stone. 7. Status post right-sided pneumothorax in 1974. Plan: 1. Continue using PAP equipment every night for the whole night. 2. To change air filter at least 1-2 times per month. 3. PAP unit should stay lower then position of the head. 4. Advised patient to remove all remaining water from humidifier canister daily and make it dry after each usage. Refill canister with fresh distilled water before each usage. 5. Sleep hygiene with regular time in bed for at least 8 hours. 6. Precautions related to driving. No driving if feel any sleepiness. 7. I will maintain prescription for PAP supplies including mask, tube, filters. 8. Follow up visit in 6 months or earlier if patient has any problems. 9. Watching weight. Thank you very much for allowing me to participate in the management of your patient. Jose Guadalupe Joel MD, PhD, FAASM. Diplomat of [place] [employer], Sleep Medicine Board by [place] [employer] Deli Cook [facility] [place]
== END ==
LOC: 3 N SLEEP 15:00
PROVIDERS: ATTEND Internal Medicine
DX: G47.33 Obstructive sleep apnea (adult) (pediatric) (principal); N40.0 Benign prostatic hyperplasia without lower urinary tract symptoms; G25.81 Restless legs syndrome; Z99.89 Dependence on other enabling machines and devices; Z98.890 Other specified postprocedural states
CPT/HCPCS: 99212

== ENCOUNTER → 2023-02-20 | Outpatient (CLI) | payer BC ==
[2023-02-20 13:31] LABS: Basophils # (A) 0.05 X 10*3/uL (0.00-0.10); Basophils % (A) 0.8 %; Eosinophils # (A) 0.61 X 10*3/uL (0.04-0.35); Eosinophils % (A) 9.7 %; HCT 46.4 % (39.6-50.0); HGB 15.1 g/dL (13.0-17.0); Lymphocytes # (A) 2.01 X 10*3/uL (0.90-5.00); Lymphocytes % (A) 31.8 %; MCH 29.7 pg (27.0-32.0); MCHC 32.5 g/dL (32.0-37.0); MCV 91.2 FL (80.0-97.0); Mean Platelet Volume 10.9 FL (9.5-12.2); Monocytes # (A) 0.52 X 10*3/uL (0.20-1.00); Monocytes % (A) 8.2 %; NRBC Per 100 WBC 0 X 10*3/uL (0.00-0.01); Neutrophils # (A) 3.11 X 10*3/uL (1.80-7.70); Neutrophils % (A) 49.2 %; Platelet Count 297 X 10*3/uL (140-440); RBC 5.09 X 10*6/uL (4.40-5.60); RDW 13.9 % (11.5-14.5); WBC 6.32 X 10*3/uL (4.50-10.00)
[2023-02-20 13:59] LABS: ALT 21 U/L (10-49); AST 16 U/L (14-35); Alkaline Phosphatase 54 U/L (41-126); Blood Urea Nitrogen 21.8 mg/dL (9.0-27.0); Calcium 9.3 mg/dL (8.7-10.3); Carbon Dioxide 25.7 mmol/L (21.6-31.8); Chloride 110 mmol/L (96-109); Chol/HDL Ratio 3.32 Ratio; Globulin 2.1 g/dL (1.6-3.3); Glucose 87 mg/dL (70-110); LDL Cholesterol,Calculated 102.4 mg/dL (0.0-131.0); Potassium 4.7 mmol/L (3.5-5.5); Sodium 144 mmol/L (135-145); Total Bilirubin 0.4 mg/dL (0.3-1.2); Total Protein 6.1 g/dL (6.2-8.2); VLDL Calculation 10.06 mg/dL (5.00-40.00)
== END | disposition home or self-care (01) ==
LOC: LABWHC1 07:13
PROVIDERS: ATTEND Internal Medicine Geriatric Medicine
DX: Z00.00 Encounter for general adult medical examination without abnormal findings (principal); E78.2 Mixed hyperlipidemia; R79.9 Abnormal finding of blood chemistry, unspecified
CPT/HCPCS: 36415; 80053; 80061; 83036; 84443; 85025

== ENCOUNTER → 2023-04-25 | Outpatient (CLI) | payer BC ==
--- NOTE | 2023-04-25 15:36 | P.PN ---
Subjective DATE: 04/25/2023 FOLLOW UP VISIT. Patient with obstructive sleep apnea hypopnea syndrome return to sleep center for follow-up visit. Information from previous visit have been reviewed. Patient is using PAP equipment every night for the whole night, getting PAP supplies in time. The patient does not have significant problems with the mask, PAP unit and humidification. [place] sleepiness scale is 6, which is normal. I checked information from PAP unit. PAP unit pressure to 4-8, average 7.6 cm H2O. Usage is 93% and 63 % for more then 4 hours, average 4.5 hours per night. Leak is 9.0 l/m, which is in acceptable range. Apnea Hypopnea Index is increased to 15.4, which includes 7.6 central apneas and 6.6 obstructive. MEDICATIONS:1. Finasteride 4 mg once a day 2. Rosuvastatin 10 mg once a day 3. Flomax 0.4 mg once a day 4. Eyedrops During physical exam: GENERAL: A pleasant patient without any distress. VITAL SIGNS: BP 144/83, HR 112, RR 12 , weight 201.4, temperature 97.6, oxygen saturation at room air 98 % . HEENT: PERRLA, EOMI.low position of soft palate, Mallapati 3 . NECK: Supple. No JVD. LUNGS: Clear to percussion and to auscultation. Good air exchange. No wheezing or rhonchi. HEART: S1, S2 regular. ABDOMEN: Soft and nontender.[] EXTREMITIES: No clubbing or cyanosis. VARNISH MAKER HELPER: Awake, alert, and oriented x3. No focal deficit. Impressions: 1. Obstructive sleep apnea-hypopnea syndrome. Patient demonstrated great compliance with treatment, benefiting from treatment. Apnea-hypopnea index increased secondary to central apneas and obstructive events. Previously tried BiPAP ST mode, but patient did not like it. 2. BPH. 3. Status post bilateral at retina detachment. 4. History of restless leg symptoms. 5. Status post surgical treatment for kidney stone. 6. Status post right-sided pneumothorax in 1974. I increased pressure in CPAP unit to the range 410 cm of water Plan: 1. Continue using PAP equipment every night for the whole night. 2. To change air filter at least 1-2 times per month. 3. PAP unit should stay lower then position of the head. 4. Advised patient to remove all remaining water from humidifier canister daily and make it dry after each usage. Refill canister with fresh distilled water before each usage. 5. Sleep hygiene with regular time in bed for at least 8 hours. 6. Precautions related to driving. No driving if feel any sleepiness. 7. I will maintain prescription for PAP supplies including mask, tube, filters. 8. Watching weight. 9. Follow up visit in 4 months or earlier if patient has any problems. Thank you very much for allowing me to participate in the management of your patient. Jose Guadalupe Joel MD, PhD, FAASM. Diplomat of [place] [employer], Sleep Medicine Board by [place] [employer] Nurse Charge Rn of [facility] [place]
== END ==
LOC: 3 N SLEEP 14:54
PROVIDERS: ATTEND Internal Medicine
DX: G47.33 Obstructive sleep apnea (adult) (pediatric) (principal); G47.31 Primary central sleep apnea; G25.81 Restless legs syndrome; N40.0 Benign prostatic hyperplasia without lower urinary tract symptoms; Z98.890 Other specified postprocedural states; Z87.442 Personal history of urinary calculi; Z99.89 Dependence on other enabling machines and devices; Z87.09 Personal history of other diseases of the respiratory system
CPT/HCPCS: 99212

== ENCOUNTER → 2023-08-29 | Outpatient (CLI) | payer BC ==
[2023-08-29 17:02] VITALS: BP 132/85; PULSE 96; RESP 16; TEMP 97.9
--- NOTE | 2023-08-29 17:29 | P.PROGSL ---
Subjective DATE: 08/29/2023 FOLLOW UP VISIT. Patient with obstructive sleep apnea hypopnea syndrome return to sleep center for follow-up visit. Information from previous visit have been reviewed. Patient is using PAP equipment every night for the whole night, getting PAP supplies in time. The patient does not have significant problems with the mask, PAP unit and humidification. [place] sleepiness scale is 6, which is normal. I checked information from PAP unit. PAP unit pressure 4-10, average 8.3 cm H2O. Usage is 100% and 80% for more then 4 hours, average 5.5 hours per night. Leak is 18.8 l/m, which is in acceptable range. Apnea Hypopnea Index is increased to 11.2, that is better than during the previous visit when it was 15.4 after I increased level of the pressure. Lets include about the same level of central apnea index 7.8 and obstructive apnea hypopnea index reduced from 6.6 down to 2.0. Patient sleeps well on weekend, when he does not have to think about his job and he has more problems with sleep during the weekdays. MEDICATIONS: Please see below During physical exam: GENERAL: A pleasant patient without any distress. VITAL SIGNS: Please see below, weight 201 pounds, which is the same as during previous visit, BMI 32.4. HEENT: PERRLA, EOMI.low position of soft palate, Mallapati 3 . NECK: Supple. No JVD. LUNGS: Clear to percussion and to auscultation. Good air exchange. No wheezing or rhonchi. HEART: S1, S2 regular. ABDOMEN: Soft and nontender.[] EXTREMITIES: No clubbing or cyanosis. FUR FARMER: Awake, alert, and oriented x3. No focal deficit. Impressions: 1. Obstructive and central sleep apnea-hypopnea syndrome. Patient demonstrated great compliance with treatment, benefiting from treatment. Reading from the machine showed some central apneas. Previously we tried treatment with BiPAP ST mode, but patient did not feel comfortable on BiPAP ST. 2. BPH. 3. Status post retina detachment. 4. History of restless leg symptoms. 5. Status post surgery treatment for kidney stones. 6. Status post right-sided pneumothorax in 1974. 7. Mild obesity by BMI 32.4 Plan: 1. Continue using PAP equipment every night for the whole night. 2. To change air filter at least 1-2 times per month. 3. PAP unit should stay lower then position of the head. 4. Advised patient to remove all remaining water from humidifier canister daily and make it dry after each usage. Refill canister with fresh distilled water before each usage. 5. Sleep hygiene with regular time in bed for at least 8 hours. 6. Precautions related to driving. No driving if feel any sleepiness. 7. I will maintain prescription for PAP supplies including mask, tube, filters. 8. Follow up visit in 6 months or earlier if patient has any problems. 9. Watching weight. Thank you very much for allowing me to participate in the management of your patient. Jose Guadalupe Joel MD, PhD, FAASM. Diplomat of [place] [employer], Sleep Medicine Board by [place] [employer]or [employer] [facility] [place] Objective - Vital Signs Vital Signs: Vital Signs Temp 97.9 F 08/29/23 16:19 Pulse 96 08/29/23 16:19 Resp 16 08/29/23 16:19 BP 132/85 08/29/23 16:19 Pulse Ox 96 08/29/23 16:19 FiO2 Intake & Output 08/28/23 08/29/23 08/29/23 18:59 06:59 18:59 Weight 91.172 kg Home Medications: Home Medications Medication Instructions Recorded Confirmed Type Finasteride [Proscar] 5 mg PO DAILY 01/06/20 08/29/23 History Tamsulosin HCl [Flomax] 0.4 mg PO DAILY 01/06/20 08/29/23 History Rosuvastatin Calcium 10 mg PO DAILY 08/14/21 08/29/23 History tadalafiL [Cialis] 5 mg PO DAILY 08/14/21 08/29/23 History Bimatoprost [Lumigan 0.01% Ophth 2.5 ml BOTH EYES DAILY 08/29/23 08/29/23 History Soln] Loratadine [Claritin] 10 mg PO DAILY 08/29/23 08/29/23 History Loteprednol/Chondroitin/Pf 1 drop BOTH EYES DAILY 08/29/23 08/29/23 History [Klarity-l (Lotepr-Chondr) 0.5%] Mv-Min/Folic/K1/Lycopen/Lutein See Rx Instructions .ROUTE .COMPLEX 08/29/23 08/29/23 History [Centrum Silver Men Tablet]
== END ==
LOC: 3 N SLEEP 16:05
PROVIDERS: ATTEND Internal Medicine
DX: G47.33 Obstructive sleep apnea (adult) (pediatric) (principal); N40.0 Benign prostatic hyperplasia without lower urinary tract symptoms; G47.37 Central sleep apnea in conditions classified elsewhere; E66.9 Obesity, unspecified; Z98.890 Other specified postprocedural states; Z68.32 Body mass index [BMI] 32.0-32.9, adult; Z99.89 Dependence on other enabling machines and devices; Z87.442 Personal history of urinary calculi; Z87.09 Personal history of other diseases of the respiratory system; Z86.69 Personal history of other diseases of the nervous system and sense organs; Z87.39 Personal history of other diseases of the musculoskeletal system and connective tissue
CPT/HCPCS: 99212

== ENCOUNTER → 2024-02-22 | Outpatient (CLI) | payer BC ==
[2024-02-22 10:33] LABS: Basophils # (A) 0.06 X 10*3/uL (0.00-0.10); Basophils % (A) 0.9 %; Eosinophils # (A) 0.61 X 10*3/uL (0.04-0.35); Eosinophils % (A) 8.8 %; HCT 45.1 % (39.6-50.0); HGB 14.8 g/dL (13.0-17.0); Lymphocytes # (A) 2.19 X 10*3/uL (0.90-5.00); Lymphocytes % (A) 31.6 %; MCH 29.1 pg (27.0-32.0); MCHC 32.8 g/dL (32.0-37.0); MCV 88.8 FL (80.0-97.0); Mean Platelet Volume 10.8 FL (9.5-12.2); Monocytes # (A) 0.55 X 10*3/uL (0.20-1.00); Monocytes % (A) 7.9 %; NRBC Per 100 WBC 0 X 10*3/uL (0.00-0.01); Neutrophils % (A) 50.5 %; Platelet Count 295 X 10*3/uL (140-440); RBC 5.08 X 10*6/uL (4.40-5.60); RDW 13.7 % (11.5-14.5); WBC 6.93 X 10*3/uL (4.50-10.00)
[2024-02-22 10:53] LABS: ALT 15 U/L (10-49); AST 15 U/L (14-35); Albumin 3.9 g/dL (3.8-4.9); Alkaline Phosphatase 51 U/L (41-126); Blood Urea Nitrogen 18.6 mg/dL (9.0-27.0); Calcium 9.4 mg/dL (8.7-10.3); Carbon Dioxide 26.6 mmol/L (21.6-31.8); Chloride 108 mmol/L (96-109); Chol/HDL Ratio 3.51 Ratio; Creatine Kinase 96 U/L (35-257); Globulin 2.3 g/dL (1.6-3.3); Glucose 92 mg/dL (70-110); LDL Cholesterol,Calculated 105.3 mg/dL (0.0-131.0); Potassium 4.5 mmol/L (3.5-5.5); Sodium 144 mmol/L (135-145); Total Bilirubin 0.3 mg/dL (0.3-1.2); Total Protein 6.2 g/dL (6.2-8.2); VLDL Calculation 11.24 mg/dL (5.00-40.00)
== END | disposition home or self-care (01) ==
LOC: LABWHC1 07:05
PROVIDERS: ATTEND Internal Medicine Geriatric Medicine
DX: Z00.00 Encounter for general adult medical examination without abnormal findings (principal); E78.2 Mixed hyperlipidemia; E03.9 Hypothyroidism, unspecified; R73.9 Hyperglycemia, unspecified
CPT/HCPCS: 36415; 80053; 80061; 82550; 83036; 84443; 85025

== ENCOUNTER → 2024-04-09 | Outpatient (CLI) | payer BC ==
[2024-04-09 16:41] VITALS: BP 144/82; PULSE 96; RESP 16; TEMP 97.9
--- NOTE | 2024-04-09 17:08 | P.PROGSL ---
Subjective DATE: 04/09/2024 FOLLOW UP VISIT. Patient with obstructive sleep apnea hypopnea syndrome return to sleep center for follow-up visit. Information from previous visit have been reviewed. Patient is using PAP equipment every night for the whole night, getting PAP supplies in time. The patient does not have significant problems with the mask, PAP unit and humidification. [place] sleepiness scale is 6, which is normal. I checked information from PAP unit. PAP unit pressure 4-10, average 8 cm H2O. Usage is 95% for more then 4 hours, average 6.3 hours per night. Leak is 18 l/m, which is in acceptable range. Apnea Hypopnea Index is 7.0 average for the last month and 5.7 for the last night, which is borderline, showed significant improvements comparing with previous visit when it was 11.2. MEDICATIONS have been reviewed, please see below. During physical exam: GENERAL: A pleasant patient without any distress. VITAL SIGNS: Please see below, weight is 202 lbs. HEENT: PERRLA, EOMI.low position of soft palate, Mallapati 3. NECK: Supple. No JVD. LUNGS: Clear to percussion and to auscultation. Good air exchange. No wheezing or rhonchi. HEART: S1, S2 regular. ABDOMEN: Soft and nontender.[] EXTREMITIES: No clubbing or cyanosis. GLASS TUBE BENDER: Awake, alert, and oriented x3. No focal deficit. Impressions: 1. Obstructive sleep apnea-hypopnea syndrome. Patient demonstrated great compliance with treatment, benefiting from treatment. 2. BPH. 3. Status post retinal detachment. 4. History of restless leg symptoms, no complaints at the present time. 5. Status post surgical treatment for kidney stones. 6. Status post right-sided pneumothorax in 1974. 7. Mild obesity. Plan: 1. Continue using PAP equipment every night for the whole night. 2. Sleep hygiene with regular time in bed for at least 7.5-8 hours 3. PAP unit should stay lower then position of the head. 4. Advised patient to remove all remaining water from humidifier canister daily and make it dry after each usage. Refill canister with fresh distilled water before each usage. 5. Watching weight. 6. Precautions related to driving. No driving if feel any sleepiness. 7. I will maintain prescription for PAP supplies including mask, tube, filters. 8. Follow up visit in 8 months or earlier if patient has any problems. Thank you very much for allowing me to participate in the management of your patient. Jose Guadalupe Joel MD, PhD, FAASM. Diplomat of [place] [employer], Sleep Medicine Board by [place] [employer] Counter [employer] [facility] [place] Objective - Vital Signs Vital Signs: Vital Signs Temp 97.9 F 04/09/24 16:40 Pulse 96 04/09/24 16:40 Resp 16 04/09/24 16:40 BP 144/82 04/09/24 16:40 Pulse Ox 99 04/09/24 16:40 FiO2 Intake & Output 04/08/24 04/09/24 04/09/24 18:59 06:59 18:59 Weight 91.626 kg Home Medications: Home Medications Medication Instructions Recorded Confirmed Type Finasteride [Proscar] 5 mg PO DAILY 01/06/20 04/09/24 History Tamsulosin HCl [Flomax] 0.4 mg PO DAILY 01/06/20 04/09/24 History Rosuvastatin Calcium 10 mg PO DAILY 08/14/21 08/29/23 History tadalafiL [Cialis] 5 mg PO DAILY 08/14/21 08/29/23 History Bimatoprost [Lumigan 0.01% Ophth 2.5 ml BOTH EYES DAILY 08/29/23 08/29/23 History Soln] Loratadine [Claritin] 10 mg PO DAILY 08/29/23 08/29/23 History Loteprednol/Chondroitin/Pf 1 drop BOTH EYES DAILY 08/29/23 04/09/24 History [Klarity-l (Lotepr-Chondr) 0.5%] Mv-Min/Folic/K1/Lycopen/Lutein See Rx Instructions .ROUTE .COMPLEX 08/29/23 08/29/23 History [Centrum Silver Men Tablet] Bimatoprost [Lumigan 0.01% Ophth See Rx Instructions .ROUTE .COMPLEX 04/09/24 04/09/24 History Soln]
== END ==
LOC: 3 N SLEEP 16:27
PROVIDERS: ATTEND Internal Medicine
DX: G47.33 Obstructive sleep apnea (adult) (pediatric) (principal); N40.0 Benign prostatic hyperplasia without lower urinary tract symptoms; E66.9 Obesity, unspecified; G25.81 Restless legs syndrome; Z87.442 Personal history of urinary calculi; Z99.89 Dependence on other enabling machines and devices
CPT/HCPCS: 99212

== ENCOUNTER → 2024-08-20 | Outpatient (CLI) | payer BC ==
[2024-08-20 10:33] LABS: Basophils # (A) 0.07 X 10*3/uL (0.00-0.10); Basophils % (A) 1.2 %; Eosinophils # (A) 0.43 X 10*3/uL (0.04-0.35); Eosinophils % (A) 7.1 %; HGB 14.5 g/dL (13.0-17.0); Lymphocytes # (A) 2.15 X 10*3/uL (0.90-5.00); Lymphocytes % (A) 35.6 %; MCH 29.4 pg (27.0-32.0); MCHC 32.2 g/dL (32.0-37.0); MCV 91.3 FL (80.0-97.0); Mean Platelet Volume 10.8 FL (9.5-12.2); Monocytes # (A) 0.66 X 10*3/uL (0.20-1.00); Monocytes % (A) 10.9 %; NRBC Per 100 WBC 0 X 10*3/uL (0.00-0.01); Neutrophils # (A) 2.71 X 10*3/uL (1.80-7.70); Neutrophils % (A) 44.9 %; Platelet Count 228 X 10*3/uL (140-440); RBC 4.93 X 10*6/uL (4.40-5.60); WBC 6.04 X 10*3/uL (4.50-10.00)
[2024-08-20 10:54] LABS: ALT 17 U/L (10-49); AST 18 U/L (14-35); Albumin 3.7 g/dL (3.8-4.9); Albumin/Globulin Ratio 1.76 Ratio (1.60-3.17); Alkaline Phosphatase 48 U/L (41-126); BUN/Creat Ratio 23.67 Ratio (12.00-20.00); Blood Urea Nitrogen 21.3 mg/dL (9.0-27.0); Carbon Dioxide 23.6 mmol/L (21.6-31.8); Chloride 111 mmol/L (96-109); Chol/HDL Ratio 3.39 Ratio; Globulin 2.1 g/dL (1.6-3.3); Glucose 90 mg/dL (70-110); LDL Cholesterol,Calculated 95.6 mg/dL (0.0-131.0); Potassium 4.5 mmol/L (3.5-5.5); Sodium 144 mmol/L (135-145); Total Bilirubin 0.3 mg/dL (0.3-1.2); Total Protein 5.8 g/dL (6.2-8.2); VLDL Calculation 10.78 mg/dL (5.00-40.00)
== END | disposition home or self-care (01) ==
LOC: LABWHC1 07:07
PROVIDERS: ATTEND Internal Medicine Geriatric Medicine
DX: I20.9 Angina pectoris, unspecified (principal); E78.2 Mixed hyperlipidemia; E03.9 Hypothyroidism, unspecified; R73.9 Hyperglycemia, unspecified
CPT/HCPCS: 36415; 80053; 80061; 83036; 84439; 84443; 85025